=== PATIENT | female | born 1950 | race Caucasian/White ===

== ENCOUNTER 2024-05-07 13:21 | Outpatient (CLI) | payer MEDICARE, BC ==
[2024-05-07] MEDS ORDERED: GADOTERATE MEGLUMINE 7.5 MMOL/15 ML VIAL IV ONE (21:03)
== END 2024-05-07 23:59 | disposition home or self-care (01) ==
LOC: MRI 13:21
PROVIDERS: ATTEND Neurological Surgery
DX: M51.17 Intervertebral disc disorders with radiculopathy, lumbosacral region (principal); M51.46 Schmorl's nodes, lumbar region; M43.16 Spondylolisthesis, lumbar region; M86.9 Osteomyelitis, unspecified; M48.07 Spinal stenosis, lumbosacral region; R60.0 Localized edema
CPT/HCPCS: 72158; A9575